=== PATIENT | female | born 1960 | race Caucasian/White ===

== ENCOUNTER 2021-10-11 13:31 | Emergency (ER) | payer BC ==
[~2021-10-11] VITALS: Ht 165.1 cm; Wt 75.0 kg
[~2021-10-11 13:31] MED LIST: ADLT ASA LOW81 MG PO; ANTIHISTAMIN25 MG OR; HYDROCHLORO25 MG/TAB PO; HYDROCHLOROT25 MG PO; LISINOPRIL20 MG PO; NAPROXEN500 MG PO; XANAX2 MG PO; ZYRTEC10 M1 PO
[2021-10-11 14:06] VITALS: BP 158/88
[2021-10-11 14:16] VITALS: BP 150/78
[2021-10-11 14:49] VITALS: BP 158/88
== END 2021-10-11 16:10 | disposition home or self-care (01) | DRG 556 ==
LOC: ED 13:31
DX: M79.89 Other specified soft tissue disorders (principal); I10 Essential (primary) hypertension